=== PATIENT | female | born 1955 | race Caucasian/White ===

== ENCOUNTER → 2016-12-17 | Outpatient (CLI) | payer BC ==
--- NOTE | 2016-12-20 09:32 | MM ---
Reason for exam: screening (asymptomatic). Last mammogram was performed 2 years and 3 months ago. History: Patient is postmenopausal. Family history of breast cancer in maternal aunt at age 57, breast cancer in paternal aunt, and breast cancer in maternal aunt at age 55. Right U/S Cancelled VAD Biopsy of both breasts, September 19, 2012. Took unspecified hormones for 3 years 6 months. Physical Findings: Nurse did not find any significant physical abnormalities on exam. MG Screening Mammo w CAD Bilateral CC and MLO view(s) were taken. Prior study comparison: September 12, 2014, bilateral MG screening mammo w CAD. September 07, 2012, CAD bilateral diagnostic mammogram. There are scattered fibroglandular densities. No significant changes when compared with prior studies. ASSESSMENT: Benign, BI-RAD 2 RECOMMENDATION: Routine screening mammogram of both breasts in 1 year.
== END | disposition home or self-care (01) ==
LOC: RADMAMWWP 10:51
PROVIDERS: ATTEND Family Medicine
DX: Z12.31 Encounter for screening mammogram for malignant neoplasm of breast (principal)

== ENCOUNTER → 2018-02-03 | Outpatient (CLI) | payer BC ==
--- NOTE | 2018-02-03 15:39 | US ---
EXAMINATION TYPE: US kidneys/renal and bladder DATE OF EXAM: 02/03/2018 COMPARISON: NONE CLINICAL HISTORY: R30.0Dysuria, N39.0 Urinary tract infec, R39.15 Ur. EXAM MEASUREMENTS: Right Kidney: 9.1 x 4.0 x 4.3 cm Left Kidney: 9.8 x 4.9 x4.7 cm Post Void Residual Volume: 17.2 mL Right Kidney: No hydronephrosis or masses seen, inferior pole obscured by bowel gas Left Kidney: No hydronephrosis or masses seen Bladder: wnl Bilateral Jets seen: Yes Normal Post Void Residual: Yes Cortical medullary differentiation is maintained bilaterally. IMPRESSION: Limited exam, no significant abnormality.
== END | disposition home or self-care (01) ==
LOC: RADUSWWP 14:52
PROVIDERS: ATTEND Family Medicine
DX: R30.0 Dysuria (principal); R39.15 Urgency of urination
CPT/HCPCS: 76770

== ENCOUNTER → 2019-08-03 | Outpatient (CLI) | payer BC ==
--- NOTE | 2019-08-05 13:44 | US ---
EXAMINATION TYPE: US kidneys/renal and bladder DATE OF EXAM: 08/03/2019 COMPARISON: NONE CLINICAL HISTORY: 64-year-old female R31.9 HEMATURIA. TECHNIQUE: Multiple sonographic images of the kidneys and bladder are obtained. FINDINGS: EXAM MEASUREMENTS: Right Kidney: 10.1 x 4.0 x 4.8 cm Left Kidney: 10.2 x 5.4 x 4.7 cm Right Kidney: No hydronephrosis. Difficult and limited visualization of the lower pole due to overlyi ng bowel gas Left Kidney: No hydronephrosis. Bladder: The partially distended bladder shows no gross abnormal body. Bilateral Jets seen: Yes IMPRESSION: No hydronephrosis.
== END | disposition home or self-care (01) ==
LOC: RADUSWWP 15:46
PROVIDERS: ATTEND Urology
DX: R31.9 Hematuria, unspecified (principal)
CPT/HCPCS: 76770

== ENCOUNTER → 2019-08-16 | Outpatient (CLI) | payer BC ==
[2019-08-16 19:57] LABS: African American GFR (CKD) 69.4 (60.0-200.0); Albumin 4.7 g/dL (3.80-4.90); Albumin/Globulin Ratio 2.47 (1.60-3.17); Anion Gap 9.5 mmol/L (4.00-12.00); Calcium 9.6 mg/dL (8.7-10.3); Carbon Dioxide 25.5 mmol/L (21.6-31.8); Globulin 1.9 g/dL (1.6-3.3); Magnesium 2.2 mg/dL (1.5-2.4); Non-African American GFR(CKD) 59.9 (60.0-200.0); Total Bilirubin 0.6 mg/dL (0.3-1.2); Total Protein 6.6 g/dL (6.2-8.2)
== END | disposition home or self-care (01) ==
LOC: LABWHC1 12:36
PROVIDERS: ATTEND Internal Medicine Gastroenterology
DX: K21.0 Gastro-esophageal reflux disease with esophagitis (principal); K30 Functional dyspepsia; R10.13 Epigastric pain
CPT/HCPCS: 36415; 80053; 83519; 83735

== ENCOUNTER → 2019-08-20 | Outpatient (CLI) | payer BC ==
--- NOTE | 2019-08-20 09:23 | US ---
EXAMINATION TYPE: US abdomen complete DATE OF EXAM: 08/20/2019 COMPARISON: US CLINICAL HISTORY: K30 functional dyspepesia R10.13 epigastric pain. EXAM MEASUREMENTS: Liver Length: 10.5 cm Gallbladder Wall: 0.2 cm CBD: 0.4 cm Spleen: 11.2 cm Right Kidney: 8.8 x 4.0 x 4.7 cm Left Kidney: 10.2 x 4.8 x 5.5 cm Pancreas: visualized portions wnl Liver: wnl Gallbladder: No stones seen Evidence for sonographic Silva's sign: No CBD: wnl Spleen: wnl Right Kidney: No hydronephrosis or masses seen , lower pole partially obscured by bowel gas. Left Kidney: echogenic area lower pole measures 0.8 x 0.6 x 0.8 cm could relate to sinus tissue. Upper IVC: wnl Abd Aorta: wnl The liver is homogenous. The intrahepatic portion of the IVC and proximal abdominal aorta are within normal limits. There is no evidence of cholelithiasis. Common bile duct is unremarkable. The visu alized portions of the pancreas are homogenous. The spleen is unremarkable. Kidneys are symmetric a nd free of hydronephrosis. No renal lesions are seen. IMPRESSION: No distinct abnormality appreciated at this time.
--- NOTE | 2019-08-20 13:16 | FL ---
EXAMINATION TYPE: FL UGI w small bowel DATE OF EXAM: 08/20/2019 COMPARISON: Prior esophagram September 01, 2011 HISTORY: GERD and abdominal pain per order. Patient states long history of reflux increased in severi ty recently with some relief with new medication. Recent endoscopy to 3 weeks ago without significant finding for patient. TECHNIQUE: A double contrast UGI study is performed with small bowel follow through. Total of 1.01 m inutes of fluoroscopic time utilized during procedure. About 80 spot images saved. FINDINGS: Configuration Consultant image of the abdomen shows no gross abnormality. The esophagus shows satisfactory motility and emptying into the stomach. No evidence of fixed hiatal hernia or stricture noted. The stomach shows satisfactory distensibility, peristalsis, and mucosal folds. No evidence of any ma ss or ulcer disease. Occasional episode of reflux into distal esophagus noted during real-time perfor mirza. The duodenal bulb and sweep are unremarkable. The small bowel study shows normal transit to the colon in less than 3 hours 45 minutes. There is no rmal mucosal fold pattern throughout the small bowel. There is no evidence of any stricture or filli ng defect noted. The terminal ileum is low lying and thought unremarkable. IMPRESSION: Mild gastroesophageal reflux. No fixed hiatal hernia or focal ulcer disease.
== END | disposition home or self-care (01) ==
LOC: RADUSMAIN 07:58
PROVIDERS: ATTEND Internal Medicine Gastroenterology
DX: K21.9 Gastro-esophageal reflux disease without esophagitis (principal); K30 Functional dyspepsia; R10.13 Epigastric pain
CPT/HCPCS: 74240; 74248; 76700

== ENCOUNTER → 2019-08-28 | Outpatient (CLI) | payer BC ==
--- NOTE | 2019-08-28 10:24 | CT ---
EXAMINATION TYPE: CT abdomen pelvis w con DATE OF EXAM: 08/28/2019 COMPARISON: none HISTORY: Hematuria, chronic bladder infections CT DLP: 542.6 mGycm CONTRAST: CT scan of the abdomen and pelvis is performed with Oral Contrast and with IV Contrast, patient injec casimiro with 100 mL of Isovue 300. FINDINGS: LUNG BASES-: No visible nodule. No infiltrate. LIVER/GB: No calcified gallstones. No space occupying hepatic lesion. Biliary tree is of normal ca liber. PANCREAS: No inflammation. No distinct mass. SPLEEN: No splenic enlargement. No lesion seen. ADRENALS: No nodule. No thickening. KIDNEYS/BLADDER: No hydronephrosis. No nephrolithiasis. No distinct renal mass. Urinary bladder g rossly unremarkable. BOWEL: Normal appendix. Normal bowel caliber. No inflammation. GENITAL ORGANS: No gross abnormality. LYMPH NODES: No greater than 1cm abdominal or pelvic lymph nodes are appreciated. AORTA: No significant abnormality. OSSEOUS STRUCTURES: No significant abnormality is seen. OTHER: No significant additional abnormality is seen. IMPRESSION: 1. No significant abnormality to account for the patient's symptoms of hematuria.
== END | disposition home or self-care (01) ==
LOC: RADCTMAIN 07:46
PROVIDERS: ATTEND Urology
DX: R31.9 Hematuria, unspecified (principal)
CPT/HCPCS: 74177; Q9967 ×2

== ENCOUNTER → 2020-10-09 | Outpatient (CLI) | payer OTHER | LOC: RADXRMAIN 10:03 | PROVIDERS: ATTEND Internal Medicine Pulmonary Disease | DX: Z53.9 Procedure and treatment not carried out, unspecified reason (principal) ==

== ENCOUNTER → 2020-10-09 | Outpatient (CLI) | payer OTHER ==
--- NOTE | 2020-10-09 13:43 | XR ---
EXAMINATION TYPE: XR chest 2V DATE OF EXAM: 10/09/2020 COMPARISON: NONE HISTORY: Cough TECHNIQUE: Frontal and lateral views of the chest are obtained. FINDINGS: There is no focal air space opacity, pleural effusion, or pneumothorax seen. The cardiac silhouette size is within normal limits. The osseous structures are intact, there is a spinal curva ture, there is thoracic spondylosis. Hyperinflation may be indicative of underlying COPD. Aorta is. T here is pleural thickening bilaterally. IMPRESSION: No acute cardiopulmonary process.
== END ==
LOC: RADXRMAIN 11:48
PROVIDERS: ATTEND Family Medicine
DX: R05 Cough (principal)
CPT/HCPCS: 71046

== ENCOUNTER → 2020-11-04 | Outpatient (CLI) | payer OTHER | END | disposition home or self-care (01) | LOC: LABWHC1 16:45 | PROVIDERS: ATTEND Family Medicine | DX: Z20.822 Contact with and (suspected) exposure to COVID-19 (principal) | CPT/HCPCS: U0003; C9803 ==

== ENCOUNTER → 2021-10-23 | Outpatient (CLI) | payer MEDICARE ==
--- NOTE | 2021-10-23 14:58 | MM ---
Reason for exam: additional evaluation requested from abnormal screening. Last mammogram was performed less than 1 month ago. History: Patient is postmenopausal. Family history of breast cancer in maternal aunt at age 57, breast cancer in paternal aunt, and breast cancer in maternal aunt at age 55. Right U/S Cancelled VAD Biopsy of both breasts, September 19, 2012. Took unspecified hormones for 3 years 6 months. Physical Findings: A clinical breast exam by your physician is recommended on an annual basis and results should be correlated with mammographic findings. MG 3D Work Up W/Cad LT Spot compression CC, spot compression MLO, and LM view(s) were taken of the left breast. Prior study comparison: October 19, 2021, bilateral MG 3d screening mammo w/cad. December 17, 2016, bilateral MG screening mammo w CAD. The breast tissue is heterogeneously dense. This may lower the sensitivity of mammography. Finding: There is a 9 mm obscured oval mass located 6 cm from the nipple in the middle, central position of the left breast, does not go completely away on additional views. ASSESSMENT: Incomplete: need additional imaging evaluation, BI-RAD 0 RECOMMENDATION: Ultrasound of the left breast.
--- NOTE | 2021-10-23 15:00 | USB ---
Reason for exam: additional evaluation requested from abnormal screening. History: Patient is postmenopausal. Family history of breast cancer in maternal aunt at age 57, breast cancer in paternal aunt, and breast cancer in maternal aunt at age 55. Right U/S Cancelled VAD Biopsy of both breasts, September 19, 2012. Took unspecified hormones for 3 years 6 months. Physical Findings: A clinical breast exam by your physician is recommended on an annual basis and results should be correlated with mammographic findings. US Breast Workup Limited LT Left limited breast ultrasound including focal area of concern, retroareolar and axilla demonstrates a 0.7 x 0.4 x 0.7cm oval, hypoechoic, avascular lesion at 12 o'clock 6cm from nipple. ASSESSMENT: Suspicious, BI-RAD 4 RECOMMENDATION: Ultrasound core biopsy of the left breast. Called Dr. Lyman's office with mammographic findings and has scheduled an appointment for the patient for 11/11/21 at 9:[address] Brizuela. Biopsy scheduled for 11/06/21 at 9:30. PRELIMINARY REPORT CALLED AND FAXED TO DR. BRIZUELA ON 10/23/21.
== END | disposition home or self-care (01) ==
LOC: RADMAMWWP 07:36
PROVIDERS: ATTEND Family Medicine
DX: R92.8 Other abnormal and inconclusive findings on diagnostic imaging of breast (principal)
CPT/HCPCS: 77065; 76642; G0279; 77061

== ENCOUNTER → 2021-11-06 | Day surgery (SDC) | payer MEDICARE ==
[2021-11-06 10:15] VITALS: RESP 16
--- NOTE | 2021-11-06 11:35 | USB ---
EXAMINATION TYPE: US biopsy breast VAD LT, MG diagnostic mammo LT wo CAD DATE OF EXAM: 11/06/2021 CLINICAL HISTORY: R92.8 abnormal mammogram. Abnormal ultrasound. TECHNIQUE: Ultrasound guided core biopsy of left breast with clip placement follow-up diagnostic two-view mammogram.. COMPARISON: Prior mammogram and ultrasound workup October 23, 2021 and older studies FINDINGS: The procedure of ultrasound guided core biopsy was explained to the patient. Benefits, alternatives, and risks were discussed. An informed consent was then obtained. The patient was placed in supine positioning for imaging and for the procedure. Preprocedure ultrasound redemonstrates oval vague hypoechoic 7 mm lesion just above the pectoralis muscle 12:00 position left breast. The overlying skin was prepped and draped in usual sterile fashion. Lidocaine is used as anesthetic into the skin and subcutaneous tissue up to area of concern in the left breast. Under ultrasound guidance, a vacuum assisted biopsy gun device was used to obtain 2 core samples. Following this, a biopsy clip was left in lesion. The patient tolerated the procedure well without any immediate complication. The patient was kept in the radiology department for short stay after the procedure and then discharged home in stable condition. Post procedure mammogram shows successful deployment of clip corresponding to area of original abnormality on the mammogram IMPRESSION: Successful, uncomplicated ultrasound guided core biopsy of area of concern in the left breast, full pathology results to follow. Low to intermediate index of suspicion noted at time of procedure. Pathology Results: High Risk LEFT BREAST, 12:00 POSITION, CORE BIOPSY: Features compatible with sclerotic intraductal papilloma (see note). Recommendation Surgical consult of the left breast. TEETEE
[2021-11-06 11:42] VITALS: BP 171/97; PULSE 80; TEMP 98
== END ==
LOC: RADUSWWP 09:48
PROVIDERS: ATTEND Student in an Organized Health Care Education/Training Program
DX: R92.8 Other abnormal and inconclusive findings on diagnostic imaging of breast (principal)
CPT/HCPCS: 19083; 88305; 77065; A4648; J2001

== ENCOUNTER → 2021-12-14 | Outpatient (CLI) | payer MEDICARE ==
--- NOTE | 2021-12-14 15:47 | XR ---
EXAMINATION TYPE: XR chest 2V DATE OF EXAM: 12/14/2021 COMPARISON: Chest x-ray October 09, 2020 HISTORY: Family history of pulmonary fibrosis. TECHNIQUE: Frontal and lateral views of the chest are obtained. FINDINGS: There is no suspicious new focal air space opacity, pleural effusion, or pneumothorax seen . The cardiac silhouette size remains within normal limits. Underlying scoliosis is redemonstrated. IMPRESSION: No acute process.
== END | disposition home or self-care (01) ==
LOC: RADXRMAIN 13:36
PROVIDERS: ATTEND Family Medicine
DX: R04.2 Hemoptysis (principal)
CPT/HCPCS: 71046

== ENCOUNTER → 2024-12-03 | Outpatient (CLI) | payer MEDICARE ==
--- NOTE | 2024-12-03 11:20 | CT ---
EXAMINATION TYPE: CT lumbar spine wo con DATE OF EXAM: 12/03/2024 9:19 AM COMPARISON: None. CLINICAL INDICATION: Female, 69 years old with history of R20.2,M54.51,M54.17,R29.2; [facility], BACK PAIN TECHNIQUE: CT of the lumbar spine without contrast. Coronal and sagittal reconstructions performed. CT DLP: 368.8 mGycm, Automated exposure control for dose reduction was used. FINDINGS: Vertebral body heights are preserved. Hypertrophic facet arthropathy mid to lower lumbar spine especially towards the right. Degenerative trace grade 1 anterolisthesis L3-L4, L4-L5, L5-S1. Mild multilevel degenerative disc disease characterized by mild bulging discs. No large focal disc herniation or significant spinal canal stenosis appreciated by CT. At L5-S1, changes result in mild left neuroforaminal stenosis. IMPRESSION: 1. Right greater than left moderate to severe hypertrophic facet arthropathy mid to lower lumbar spin e. 2. Degenerative trace grade 1 anterolisthesis L3-S1 levels. 3. Changes result in mild left neuroforaminal stenosis at L5-S1. 4. No focal disc herniation by CT or significant spinal canal or neuroforaminal stenosis seen. [facility], , 12/03/2024 11:18 AM
== END | disposition home or self-care (01) ==
LOC: RADCTMAIN 08:57
PROVIDERS: ATTEND Family Medicine
DX: M48.07 Spinal stenosis, lumbosacral region (principal); M51.16 Intervertebral disc disorders with radiculopathy, lumbar region; M43.17 Spondylolisthesis, lumbosacral region; M47.26 Other spondylosis with radiculopathy, lumbar region; R20.2 Paresthesia of skin; R29.2 Abnormal reflex
CPT/HCPCS: 72131